=== PATIENT | female | born 1955 | race Caucasian/White ===

== ENCOUNTER 2017-05-04 08:01 | Observation (INO) ==
[2017-05-04 08:25] LABS: Basophils # 0.1 K/mcL (0.0-0.2); Basophils % 0.9 %; Eosinophils # 0.2 K/mcL (0.0-0.6); Eosinophils % 2.7 %; Hematocrit 42.9 % (35.3-44.9); Hemoglobin 14.2 g/dL (11.5-15.4); Immature Granulocytes % 0.1 % (0-4); Lymphocytes # 2.5 K/mcL (0.6-4.6); Lymphocytes % 34.2 %; Mean Corpuscular HGB Conc 33.1 g/dL (31.6-35.5); Mean Corpuscular Hemoglobin 29.8 pg (28.0-33.3); Mean Corpuscular Volume 90.1 fL (83.0-100.0); Mean Platelet Volume 10.6 fL (9.4-12.4); Monocytes # 0.5 K/mcL (0.0-1.3); Monocytes % 6.2 %; Neutrophils # 4.1 K/mcL (1.6-8.9); Platelet Count 184 K/mcL (140-400); Red Blood Count 4.76 M/mcL (3.82-4.97); Red Cell Distribution Width 13.7 % (11.5-14.5); Segmented Neutrophils % 55.9 %
--- NOTE | 2017-05-04 08:26 | Emergency Department Note ---
Disposition Clinical Impression: Near syncope, Chest pain, rule out acute myocardial infarction Disposition: Admitted As Inpatient Condition: Fair Referrals: Terrell Garcia DO [Primary Care Provider] - Forms: ED Satisfaction Letter Time of Disposition: 09:38 Dizziness HPI - General Chief Complaint: ED Dizziness Stated Complaint: chest pressure, near syncope Time Seen by Provider: 05/04/17 08:06 Source: patient, family Limitations: no limitations Nursing Notes Reviewed: Yes Vital Signs Reviewed: Yes - History of Present Illness HPI Narrative: Alert and oriented nontoxic-appearing 61-year-old female presents for evaluation of "dizziness". This had an abrupt onset approximately 45 minutes ago while patient was positioned at work. She also complains of associated diffuse chest pain, shortness of breath, nausea, and "tingling all over". She does complain of a slight nonproductive cough but attributes this to her smoking. She denies any headache or visual disturbances. Her dizziness is made worsened by positional changes. She rates the pressure in her chest and 8 out of 10 on a 10 point scale. She does state a positive cardiac history, having had a single heart stent placed many years ago, however she does not currently take any antiplatelet medications. She denies any swelling of the lower extremities. She denies any hemoptysis. He denies any alleviating factors for her chest pressure. Pt Subjective Complaint: dizziness Onset (ago): minute(s) (45) Timing: sudden onset Description: lightheadedness History of similar episodes: Yes History of trauma: No Severity: moderate Improves with: nothing Worsens with: movement Associated symptoms: Reports: chest pain, diaphoresis, shortness of breath, nausea. Denies: fever, vision changes, vomiting, palpitations - Related Data Home Medications Medication Instructions Recorded Confirmed Aspirin 325 mg PO BID 11/12/14 11/12/14 Allergies Allergy/AdvReac Type Severity Reaction Status Date / Time No Known Allergies Allergy Verified 05/04/17 08:01 All systems ED: reviewed and negative except as stated. Constitutional: Denies: fever, chills, weakness, weight change Eyes: Denies: eye pain, eye discharge, vision change ENT ED: Denies: ear pain, throat pain, dental pain, hearing loss, epistaxis, congestion, dysphagia Cardiovascular: Reports: as per HPI, chest pain. Denies: palpitations, dyspnea on exertion, edema, syncope Respiratory: Reports: as per HPI, dyspnea. Denies: cough, wheezes, hemoptysis, stridor Gastrointestinal: Reports: as per HPI, nausea. Denies: abdominal pain, vomiting , diarrhea, constipation, hematemesis, melena, hematochezia Genitourinary: Denies: dysuria, frequency, hematuria, discharge Musculoskeletal: Denies: back pain, neck pain, arthralgia, myalgia Integumentary: Denies: rash, abrasion, lesions Neurological: Reports: as per HPI, paresthesias, other (dizziness). Denies: headache, weakness, numbness, confusion, abnormal gait, vertigo Psychiatric: Denies: anxiety, depression, suicidal thoughts, homicidal thoughts , auditory hallucinations, visual hallucinations Endocrine: Denies: fatigue Hematological/Lymphatic: Denies: easy bleeding, easy bruising Allergic/Immunologic: Denies: facial swelling, urticaria Past Medical History - Past Medical History Attestation: Yes The following information was validated with the patient. Source: patient, nursing notes reviewed Medical history: Reports: coronary artery disease, hyperlipidemia, hypertension Psychiatric history: Reports: no psych history - Social History Smoking Status: Current every day smoker Smokeless Tobacco Status: No Alcohol use: Reports: none, rarely Drug use: Reports: none Physical Exam - General Limitations: no limitations General appearance: alert, in no apparent distress - Head Head exam: atraumatic, normocephalic, normal inspection - Eye Eye exam: Present: normal appearance, PERRL, EOMI. Absent: nystagmus - Expanded Eye Exam Pupils: Bilateral: regular, round, reactive, size (2) - ENT ENT exam: mucous membranes moist - Neck Neck exam: Present: normal inspection, full ROM, trachea midline. Absent: lymphadenopathy - Chest Chest inspection: Present: normal inspection, symmetric chest wall rise - Respiratory Respiratory exam: Present: normal lung sounds bilaterally. Absent: respiratory distress, wheezes, stridor, accessory muscle use, prolonged expiratory phase - Cardiovascular Cardiovascular exam: Present: regular rate, normal rhythm, normal heart sounds - Abdominal Exam Abdominal exam: Present: soft, Non-Tender, normal bowel sounds - Extremities Exam Extremities exam: Present: normal inspection, full ROM. Absent: tenderness, pedal edema - Neurological Exam Neurological exam: Present: alert, oriented X3, normal gait - Expanded Neurological Exam Patient oriented to: Present: person, place, time Speech: Present: fluid speech Cranial nerves: EOM function (II, III, IV, ): Normal, facial sensation (V): Normal, facial palsy (VII): Normal, spinal accessory function (XI): Normal, tongue deviation (XII): Normal Cerebellar function: finger to nose: Normal, heel to lee: Normal Motor strength - LUE: 5/5 Motor strength - RUE: 5/5 Motor strength - LLE: 5/5 Motor strength - RLE: 5/5 Upper motor neuron exam: grnat neglect: Absent bilaterally, pronator drift: Absent bilaterally, sensory extinction: Absent bilaterally Sensory exam upper extremity: light touch: Normal Sensory exam lower extremity: light touch: Normal Coma Scale Eye Opening: Spontaneous Coma Scale Motor Response: Obeys Commands Coma Scale Verbal Response: Oriented Coma Scale Total: 15 - Psychiatric Psychiatric exam: Present: normal affect, normal mood - Skin Skin exam: Present: warm, dry, intact, normal color Course Course Narrative: 929: I spoke with Dr. Ferraro of the hospitalist service who has accepted patient for admission under her care. I have also discussed this patient's case with Dr. Gallardo. He has had a [id number] evaluation with the patient and agrees with the aforementioned plan. Vital Signs Temperature 97.2 F L 05/04/17 08:02 Pulse Rate 50 05/04/17 08:02 Respiratory Rate 20 05/04/17 08:02 Blood Pressure 161/74 05/04/17 08:02 O2 Sat by Pulse Oximetry 93 05/04/17 08:02 Temperature 97.2 F L 05/04/17 08:02 Pulse Rate 51 05/04/17 09:03 Respiratory Rate 18 05/04/17 09:03 Blood Pressure 151/66 05/04/17 09:03 O2 Sat by Pulse Oximetry 93 05/04/17 09:03 Oxygen Delivery Oxygen Delivery Room Air Dizziness - Medical Records Medical records reviewed: Yes I reviewed the patient's medical records. - Lab Data Lab results reviewed: Yes I reviewed the patient's lab results. Lab results narrative: Laboratory Last Values WBC 7.4 K/mcL (4.3-11.1) 05/04/17 08:17 RBC 4.76 M/mcL (3.82-4.97) 05/04/17 08:17 Hgb 14.2 g/dL (11.5-15.4) 05/04/17 08:17 Hct 42.9 % (35.3-44.9) 05/04/17 08:17 MCV 90.1 fL (83.0-100.0) 05/04/17 08:17 MCH 29.8 pg (28.0-33.3) 05/04/17 08:17 MCHC 33.1 g/dL (31.6-35.5) 05/04/17 08:17 RDW 13.7 % (11.5-14.5) 05/04/17 08:17 Plt Count 184 K/mcL (140-400) 05/04/17 08:17 MPV 10.6 fL (9.4-12.4) 05/04/17 08:17 Immature Gran % 0.1 % (0-4) 05/04/17 08:17 Seg Neutrophils % 55.9 % 05/04/17 08:17 Lymphocytes % 34.2 % 05/04/17 08:17 Monocytes % 6.2 % 05/04/17 08:17 Eosinophils % 2.7 % 05/04/17 08:17 Basophils % 0.9 % 05/04/17 08:17 Neutrophils # 4.1 K/mcL (1.6-8.9) 05/04/17 08:17 Lymphocytes # 2.5 K/mcL (0.6-4.6) 05/04/17 08:17 Monocytes # 0.5 K/mcL (0.0-1.3) 05/04/17 08:17 Eosinophils # 0.2 K/mcL (0.0-0.6) 05/04/17 08:17 Basophils # 0.1 K/mcL (0.0-0.2) 05/04/17 08:17 PT 10.4 Seconds (9.4-12.1) 05/04/17 08:17 INR 1.0 05/04/17 08:17 APTT 24.9 Seconds (26.0-36.0) L 05/04/17 08:17 Sodium 138 mEq/L (136-145) 05/04/17 08:17 Potassium 3.9 mEq/L (3.5-5.1) 05/04/17 08:17 Chloride 107 mEq/L (98-107) 05/04/17 08:17 Carbon Dioxide 26 mEq/L (23-29) 05/04/17 08:17 BUN 21 mg/dL (8-23) 05/04/17 08:17 Creatinine 1.27 mg/dL (0.60-1.20) H 05/04/17 08:17 Est GFR ( Amer) 52 (> 60) L 05/04/17 08:17 Est GFR (Non-Af Amer) 43 (> 60) L 05/04/17 08:17 BUN/Creatinine Ratio 17 (6-26) 05/04/17 08:17 Glucose 157 mg/dL (70-105) H 05/04/17 08:17 Calculated Osmolality 292 (280-300) 05/04/17 08:17 Calcium 8.9 mg/dL (8.6-10.3) 05/04/17 08:17 Troponin I < 0.03 ng/mL (< 0.04) 05/04/17 08:17 Urine Color Yellow (Yellow) 05/04/17 08:58 Urine Clarity Cloudy (Clear) A 05/04/17 08:58 Urine pH 6.0 pH Units (5.0-8.0) 05/04/17 08:58 Ur Specific [place] 1.016 (1.010-1.025) 05/04/17 08:58 Urine Protein Trace mg/dL (Neg-Trace) 05/04/17 08:58 Urine Glucose (UA) Normal mg/dL (Normal) 05/04/17 08:58 Urine Ketones Negative mg/dL (Negative) 05/04/17 08:58 Urine Blood Negative (Negative) 05/04/17 08:58 Urine Nitrite Negative (Negative) 05/04/17 08:58 Urine Bilirubin Negative (Negative) 05/04/17 08:58 Urine Urobilinogen Normal mg/dL (Normal) 05/04/17 08:58 Ur Leukocyte Esterase Small (Negative) H 05/04/17 08:58 Urine Microscopic RBC 0-3 per hpf (0-3) 05/04/17 08:58 Urine Microscopic WBC 3-5 per hpf (0-3) H 05/04/17 08:58 Ur Squamous Epith Cells Many per lpf (None-Few) H 05/04/17 08:58 Urine Bacteria Few per hpf (None-Few) 05/04/17 08:58 Hyaline Casts None Seen per lpf (None-Few) 05/04/17 08:58 Ur Culture Indicated? NO. (NO) 05/04/17 08:58 Result diagrams: 05/04/17 08:17 05/04/17 08:17 Lab Results 05/04/17 05/04/17 05/04/17 Range/Units 08:17 08:17 08:17 WBC 7.4 (4.3-11.1) K/mcL RBC 4.76 (3.82-4.97) M/mcL Hgb 14.2 (11.5-15.4) g/dL Hct 42.9 (35.3-44.9) % MCV 90.1 (83.0-100.0) fL MCH 29.8 (28.0-33.3) pg MCHC 33.1 (31.6-35.5) g/dL RDW 13.7 (11.5-14.5) % Plt Count 184 (140-400) K/mcL MPV 10.6 (9.4-12.4) fL Immature Gran % 0.1 (0-4) % Seg Neutrophils % 55.9 % Lymphocytes % 34.2 % Monocytes % 6.2 % Eosinophils % 2.7 % Basophils % 0.9 % Neutrophils # 4.1 (1.6-8.9) K/mcL Lymphocytes # 2.5 (0.6-4.6) K/mcL Monocytes # 0.5 (0.0-1.3) K/mcL Eosinophils # 0.2 (0.0-0.6) K/mcL Basophils # 0.1 (0.0-0.2) K/mcL PT (9.4-12.1) Seconds INR APTT (26.0-36.0) Seconds Sodium 138 (136-145) mEq/L Potassium 3.9 (3.5-5.1) mEq/L Chloride 107 (98-107) mEq/L Carbon Dioxide 26 (23-29) mEq/L BUN 21 (8-23) mg/dL Creatinine 1.27 H (0.60-1.20) mg/dL Est GFR ( Amer) 52 L (> 60) Est GFR (Non-Af Amer) 43 L (> 60) BUN/Creatinine Ratio 17 (6-26) Glucose 157 H (70-105) mg/dL Calculated Osmolality 292 (280-300) Calcium 8.9 (8.6-10.3) mg/dL Troponin I < 0.03 (< 0.04) ng/mL Urine Color (Yellow) Urine Clarity (Clear) Urine pH (5.0-8.0) pH Units Ur Specific [place] (1.010-1.025) Urine Protein (Neg-Trace) mg/dL Urine Glucose (UA) (Normal) mg/dL Urine Ketones (Negative) mg/dL Urine Blood (Negative) Urine Nitrite (Negative) Urine Bilirubin (Negative) Urine Urobilinogen (Normal) mg/dL Ur Leukocyte Esterase (Negative) Urine Microscopic RBC (0-3) per hpf Urine Microscopic WBC (0-3) per hpf Ur Squamous Epith Cells (None-Few) per lpf Urine Bacteria (None-Few) per hpf Hyaline Casts (None-Few) per lpf Ur Culture Indicated? (NO) 05/04/17 05/04/17 Range/Units 08:17 08:58 WBC (4.3-11.1) K/mcL RBC (3.82-4.97) M/mcL Hgb (11.5-15.4) g/dL Hct (35.3-44.9) % MCV (83.0-100.0) fL MCH (28.0-33.3) pg MCHC (31.6-35.5) g/dL RDW (11.5-14.5) % Plt Count (140-400) K/mcL MPV (9.4-12.4) fL Immature Gran % (0-4) % Seg Neutrophils % % Lymphocytes % % Monocytes % % Eosinophils % % Basophils % % Neutrophils # (1.6-8.9) K/mcL Lymphocytes # (0.6-4.6) K/mcL Monocytes # (0.0-1.3) K/mcL Eosinophils # (0.0-0.6) K/mcL Basophils # (0.0-0.2) K/mcL PT 10.4 (9.4-12.1) Seconds INR 1.0 APTT 24.9 L (26.0-36.0) Seconds Sodium (136-145) mEq/L Potassium (3.5-5.1) mEq/L Chloride (98-107) mEq/L Carbon Dioxide (23-29) mEq/L BUN (8-23) mg/dL Creatinine (0.60-1.20) mg/dL Est GFR ( Amer) (> 60) Est GFR (Non-Af Amer) (> 60) BUN/Creatinine Ratio (6-26) Glucose (70-105) mg/dL Calculated Osmolality (280-300) Calcium (8.6-10.3) mg/dL Troponin I (< 0.04) ng/mL Urine Color Yellow (Yellow) Urine Clarity Cloudy A (Clear) Urine pH 6.0 (5.0-8.0) pH Units Ur Specific [place] 1.016 (1.010-1.025) Urine Protein Trace (Neg-Trace) mg/dL Urine Glucose (UA) Normal (Normal) mg/dL Urine Ketones Negative (Negative) mg/dL Urine Blood Negative (Negative) Urine Nitrite Negative (Negative) Urine Bilirubin Negative (Negative) Urine Urobilinogen Normal (Normal) mg/dL Ur Leukocyte Esterase Small H (Negative) Urine Microscopic RBC 0-3 (0-3) per hpf Urine Microscopic WBC 3-5 H (0-3) per hpf Ur Squamous Epith Cells Many H (None-Few) per lpf Urine Bacteria Few (None-Few) per hpf Hyaline Casts None Seen (None-Few) per lpf Ur Culture Indicated? NO. (NO) - Radiology Data Radiology results reviewed: Yes I reviewed the patient's radiology results. Chest X-Ray 05/04/17 08:07 IMPRESSION: No radiographic evidence of acute cardiopulmonary process. D/ / Gadiel Solano MD / Gadiel Solano MD Interpreting Provider: Gadiel Solano MD Head CT 05/04/17 08:07 IMPRESSION: No acute intracranial abnormality. D/ / Jim Coronado MD / Jim Coronado MD Interpreting Provider: Jim Coronado MD - EKG Data EKG attestation: Yes I reviewed and interpreted this EKG. EKG results narrative: EKG reviewed by Dr. Gallardo as well. EKG shows sinus bradycardia with nonspecific T-wave abnormality at a rate of 81 bpm. KS interval 141, QRS duration 76, QT/QTc interval 441/418. No ectopy noted. No STEMI. T-wave inversions are noted in leads V5 and V6 when compared to a previous EKG dated from 11/03/14. Attestation Statement - Attestation Attestation: For this encounter, I have reviewed the CLOTH MENDER or PA documentation, treatment plan, and medical decision making; and I have had face to face time with this patient. [id number] time provided Patient evaluated in conjunction with the mid-level provider Carlos Sanchez. ECG reviewed by me. Labs reviewed by me. NIH Stroke Scale - Level of Consciousness LOC: Alert - LOC Questions LOC Questions: Answers both correctly - LOC Commands LOC Commands: Performs both correctly - Best Gaze Best Gaze: Normal - Visual Visual: No visual loss - Facial Palsy Facial Palsy: Normal - Motor Arms Motor Arm-Left: No drift for 10 seconds Motor Arm-Right: No drift for 10 seconds - Motor Legs Motor Leg-Left: No drift for 5 seconds Motor Leg-Right: No drift for 5 seconds - Limb Ataxia Limb Ataxia: Normal, No Ataxia - Sensory Sensory: Normal - Best Language Best Language: No aphasia - Dysarthria Dysarthria: Normal - Extinction and Inattention Extinction and Inattention: Normal - NIHSS Total Score NIHSS Total Score: 0
[2017-05-04 08:29] LABS: Prothrombin Time 10.4 Seconds (9.4-12.1)
[2017-05-04 08:32] LABS: Activated Partial Thrombo Time 24.9 Seconds (26.0-36.0)
[2017-05-04] MEDS ORDERED: Aspirin 81 MG TAB.CHEW PO ONE (08:37)
[2017-05-04 08:43] LABS: Calcium 8.9 mg/dL (8.6-10.3); Potassium 3.9 mEq/L (3.5-5.1)
[2017-05-04 09:10] LABS: Bilirubin,Urine Negative (Negative); Blood,Urine Negative (Negative); Clarity,Urine Cloudy (Clear); Color,Urine Yellow (Yellow); Glucose,Urine (UA) Normal (Normal); Ketones,Urine Negative (Negative); Leukocyte Esterase,Urine Small (Negative); Nitrite,Urine Negative (Negative); Protein,Urine Trace mg/dL (Neg-Trace); Specific Gravity,Urine 1.016 (1.010-1.025); Urobilinogen,Urine Normal (Normal)
[2017-05-04 09:12] LABS: Bacteria,Urine Few per hpf (None-Few); Hyaline Casts,Urine None Seen per lpf (None-Few); RBC,Urine 0-3 per hpf (0-3); Squamous Epithelial Cell,Urine Many per lpf (None-Few)
[2017-05-04] MEDS ORDERED: Ondansetron 4 MG/2 ML VIAL IVP ONE (09:21)
[2017-05-04] MEDS ORDERED: Naloxone 0.4 MG/ML INJ IVP PRN (10:17)
[2017-05-04] MEDS ORDERED: Ondansetron 4 MG/2 ML VIAL IVP PRN (10:17)
[2017-05-04] MEDS ORDERED: *HR* Morphine 2 MG/ML SYRINGE IVP PRN (10:17)
[2017-05-04] MEDS ORDERED: Acetaminophen 325 MG TABLET PO PRN (10:17)
[2017-05-04] MEDS ORDERED: *HR* HYDROcodone/Acet 5/325 mg TABLET PO PRN (10:17)
[2017-05-04] MEDS ORDERED: Nitroglycerin 0.4 MG TAB.SUBL SL PRN (10:22)
--- NOTE | 2017-05-04 10:25 | Internal Med History&Physical ---
Date of Encounter: 05/04/17 Time of Encounter: 11:00 Assessment and Plan (1) Unstable angina Current visit: Yes Status: Acute Patient with dizziness accompanied by chest pressure, significant risk factors including a self hx of CAD with stents, not on any antiplatelet therapy, or statins, and tobacco abuse Initial EKG with T wave changes in V5 and V6, new compared to prior EKG of 2014 Initial troponin negative Cycle troponin Obtain ECHO Continue ASA Low dose BB due to patient's chronic hx of bradycardia ACEI, Lipitor at bedtime Check A1C and lipid panel, consult cardiology Keep NPO from MS (2) Hx of coronary artery disease Current visit: Yes Status: Chronic as above (3) HTN (hypertension) Current visit: Yes Status: Chronic continue current meds Qualifiers: Hypertension type: essential hypertension Qualified Code(s): I10 - Essential (primary) hypertension (4) Tobacco abuse Current visit: Yes Status: Chronic cessation encouraged declines NRT (5) Bradycardia Current visit: Yes Status: Chronic chronic, per patient, sometimes up to low to mid 40s. (6) Near syncope Current visit: Yes Status: Acute suspect related to cardiac symptoms Head CT unremarkable Follow ECHO and Carotid USS Keep on telemetry Internal Medicine - H&P: HPI Chief complaint: Dizziness Admitted From: Home Plans for Post Hospital Care: Home History of present illness: Ms. Godinez is a 61 year old female with hx of Tobacco abuse, HTN, HLD, CAD with prior stent several years ago not on any form of antiplatelet She was at work this morning, when she developed dizziness which was sudden, and associated with chest pressure said to have been 10 over 10 in severity, nonradiating. There was associated nausea and one episode of vomiting. The chest pressure lasted until patient go to the ER and it was relieved with aspirin. The patient denies any headaches, no palpitations, no loss of consciousness, she did not fall. She has no shortness of breath, she coughs every day because of smoking and and no changes in phlegm production. She has no fever or chills. She has no abdominal symptoms. She has no leg edema. She has no change in her bowel or urinary habits. Workup in the ER was unremarkable except for a creatinine of 1.7, and trend in her chemistry, this is chronic. Her EKG showed T-wave depressions in V5 and V6 , and his anemia compared to her EKG 2-1/2 years ago. The patient is not aware of any recent EKGs by her PCP. She smokes one pack of cigarettes every day. She has no significant family history of coronary artery disease. Past Med Surg Social Fam HX - Past Medical History Medical history: coronary artery disease, hyperlipidemia, hypertension Psychiatric history: no psych history - Social History Smoking Status: Current every day smoker Smokeless Tobacco Status: No Alcohol use: none, rarely Drug use: none Internal Medicine - H&P: Meds No Known Home Drugs 05/04/17 [History] 3 Allergy/AdvReac Type Severity Reaction Status Date / Time No Known Allergies Allergy Verified 05/04/17 09:51 All Systems PM: A 10-system review of systems was performed and is negative for pertinent findings except as documented above in the HPI. - Constitutional Constitutional: as per HPI - EENT Eyes: as per HPI Ears: as per HPI Nose, mouth and throat: as per HPI - Cardiovascular Cardiovascular ROS IM: as per HPI - Respiratory Respiratory: as per HPI - Gastrointestinal Gastrointestinal: as per HPI - Genitourinary Genitourinary: as per HPI - Musculoskeletal Musculoskeletal ROS IM: as per HPI - Integumentary Integumentary IM: as per HPI - Neurological Neurological ROS: as per HPI - Hematologic/Lymphatic Hematologic/Lymphatic: as per HPI - Constitutional Vitals: Temp Pulse Resp BP Pulse Ox 97.2 F L 51 18 151/66 93 05/04/17 08:02 05/04/17 09:03 05/04/17 09:03 05/04/17 09:03 05/04/17 09:03 General appearance: Present: A&O X 3, pleasant, no acute distress - Head Head exam: Present: atraumatic, normocephalic - Eye Eye exam: Present: PERRL, conjuntiva pink, sclera anicteric Pupils: Present: PERRL - Neck Neck exam general surgery: Present: supple, trachea midline. Absent: lymphadenopathy - Respiratory Respiratory exam: Present: CTAB. Absent: accessory muscle use, rales, rhonchi, wheezes Additional comments: no chest wall tenderness - Cardiovascular Cardiovascular exam: Present: bradycardia (chronic, per patient, sometimes in the upper 40s), RRR, +S1, +S2. Absent: diastolic murmur, gallop, rubs, systolic murmur - GI/Abdominal GI/Abdominal exam: Present: normal bowel sounds, soft, no peritoneal signs. Absent: distended, tenderness - Extremities Exam Extremities exam: Present: warm, radial pulses palpable and symmetrical. Absent : calf tenderness, cyanotic, pedal edema - Neurological Exam Neurological exam: Present: alert, CN II-XII intact, oriented X3, no focal deficits. Absent: pronater drift, facial droop, speech deficit - Skin Skin exam: Present: dry, intact Internal Med - H&P Results - Labs CBC & Chem 7: 05/04/17 08:17 05/04/17 08:17
[2017-05-04] MEDS ORDERED: 0.9 % Sodium Chloride 1,000 ML IVC SCH (12:45)
[2017-05-05 05:55] LABS: Hematocrit 40.6 % (35.3-44.9); Hemoglobin 13.1 g/dL (11.5-15.4); Mean Corpuscular HGB Conc 32.3 g/dL (31.6-35.5); Mean Corpuscular Hemoglobin 29.4 pg (28.0-33.3); Mean Platelet Volume 10.7 fL (9.4-12.4); Platelet Count 160 K/mcL (140-400); Red Blood Count 4.46 M/mcL (3.82-4.97); Red Cell Distribution Width 13.8 % (11.5-14.5)
[2017-05-05 05:59] LABS: Hemoglobin A1C 5.3 %
[2017-05-05 06:15] LABS: Albumin 3.4 g/dL (3.5-5.7); Albumin/Globulin Ratio 1.4 (1.1-2.2); Bilirubin,Total 0.4 mg/dL (0.3-1.0); Calcium 8.5 mg/dL (8.6-10.3); Chol/HDL Ratio 5.4 (0-4.9); Globulin 2.4 g/dL (2.4-3.5); Potassium 4.6 mEq/L (3.5-5.1); Total Protein 5.8 g/dL (6.4-8.9)
[2017-05-05] MEDS: Aspirin Enteric Coated 81 MG Tablet PO SCH (09:16)
--- NOTE | 2017-05-05 10:26 | Internal Med Progress Note ---
<Aodlfo Bartlett - Last Filed: 05/05/17 11:48> Date of Encounter: 05/05/17 Time of Encounter: 10:24 - Assessment and plan (1) Chest pain, rule out acute myocardial infarction Current Visit: Yes Status: Acute Assessment and plan: Patient reports atypical symptoms of chest pressure while at work Cardiology consult for T-wave inversions in V5 and V6, appreciate recommendations Echocardiogram is pending and she will receive pharmacologic stress test tomorrow Initial chest x-ray and troponins were negative She does not take any medications at home, and has been started on aspirin, statin, lisinopril Given bradycardia, she will not be started on beta blockers (2) Near syncope Current Visit: Yes Status: Acute Assessment and plan: Unclear etiology, but may be related to patient's bradycardia We will obtain a carotid Doppler and echocardiogram (3) Hx of coronary artery disease Current Visit: Yes Status: Chronic Assessment and plan: Patient reports having an NE with stents in 2004 We will continue antianginal therapy upon discharge (4) HTN (hypertension) Current Visit: Yes Status: Chronic Assessment and plan: Blood pressure is stable today continue lisinopril Qualifiers: Hypertension type: essential hypertension Qualified Code(s): I10 - Essential (primary) hypertension (5) Bradycardia Current Visit: Yes Status: Chronic Assessment and plan: This is chronic per patient We will avoid beta blockers echocardiogram pending (6) Tobacco abuse Current Visit: Yes Status: Chronic Assessment and plan: Counseled on smoking cessation (7) DVT prophylaxis Current Visit: Yes Status: Acute Assessment and plan: Heparin 5000 units twice a day - Subjective Interval history: Pt seen and examined. She reports chest pressure that has since resolved. She reports dizziness during the initial phase while she was walking at work but believes it is related to her ear. Denies any shortness of breath. - Constitutional Vitals: Temp Pulse Resp BP Pulse Ox 98.1 F 49 16 129/70 94 05/05/17 08:21 05/05/17 08:21 05/05/17 08:21 05/05/17 08:21 05/05/17 09:20 General appearance: Present: A&O X 3, pleasant, no acute distress - Head Head exam: Present: atraumatic, normocephalic - Eye Eye exam: Present: PERRL, conjuntiva pink, sclera anicteric - Neck Neck exam general surgery: Present: supple, trachea midline. Absent: lymphadenopathy - Respiratory Respiratory exam: Present: CTAB. Absent: accessory muscle use, rales, rhonchi, wheezes - Cardiovascular Cardiovascular exam: Present: bradycardia, +S1, +S2. Absent: diastolic murmur, gallop, rubs, systolic murmur - GI/Abdominal GI/Abdominal exam: Present: normal bowel sounds, soft, no peritoneal signs. Absent: distended, tenderness - Extremities Exam Extremities exam: Present: warm, radial pulses palpable and symmetrical. Absent : calf tenderness, cyanotic, pedal edema - Neurological Exam Neurological exam: Present: alert, no focal deficits. Absent: facial droop, speech deficit - Skin Skin exam: Present: dry, intact Internal Medicine: Result - Labs CBC & Chem 7: 05/05/17 05:30 05/05/17 05:30 Labs: Short CBC 05/05/17 Range/Units 05:30 WBC 6.6 (4.3-11.1) K/mcL Hgb 13.1 (11.5-15.4) g/dL Hct 40.6 (35.3-44.9) % Plt Count 160 (140-400) K/mcL BMP 05/05/17 05:30 Sodium 141 Potassium 4.6 Chloride 111 H Carbon Dioxide 27 BUN 17 Creatinine 1.24 H Glucose 89 Calcium 8.5 L Cardiac Enzymes 05/04/17 05/04/17 Range/Units 13:36 20:42 Troponin I < 0.03 < 0.03 (< 0.04) ng/mL Liver Function 05/05/17 Range/Units 05:30 Total Bilirubin 0.4 (0.3-1.0) mg/dL AST 11 L (13-39) Units/L ALT 8 (7-52) Units/L Alkaline Phosphatase 64 (34-104) Units/L Albumin 3.4 L (3.5-5.7) g/dL - ABG Interpretation ABG results: PT/INR, D-dimer PT 10.4 Seconds (9.4-12.1) 05/04/17 08:17 - Impressions Impressions Retroperitoneum Ultrasound 05/04/17 14:00 IMPRESSION: 1. Global right renal atrophy with no obstructive uropathy. This could relate to renal artery stenosis. 2. Normal appearance of the left kidney. 3. Cholelithiasis. D/ / 05/04/2017 16:23:06 Kojo Whitmore MD / olivia Interpreting Provider: Kojo Whitmore MD Consult Discharge Plan - Plan Referrals: Colrivera,Terrell Ashton DO [Primary Care Provider] - (patient will call for an appt... ) <Natanael Ware - Last Filed: 05/05/17 15:40> Date of Encounter: 05/05/17 - Constitutional Vitals: Temp Pulse Resp BP Pulse Ox 97.7 F 52 15 133/60 95 05/05/17 11:45 05/05/17 11:45 05/05/17 11:45 05/05/17 11:45 05/05/17 11:45 Internal Medicine: Result - Labs CBC & Chem 7: 05/05/17 05:30 05/05/17 05:30 Labs: Short CBC 05/05/17 Range/Units 05:30 WBC 6.6 (4.3-11.1) K/mcL Hgb 13.1 (11.5-15.4) g/dL Hct 40.6 (35.3-44.9) % Plt Count 160 (140-400) K/mcL BMP 05/05/17 05:30 Sodium 141 Potassium 4.6 Chloride 111 H Carbon Dioxide 27 BUN 17 Creatinine 1.24 H Glucose 89 Calcium 8.5 L Cardiac Enzymes 05/04/17 Range/Units 20:42 Troponin I < 0.03 (< 0.04) ng/mL Liver Function 05/05/17 Range/Units 05:30 Total Bilirubin 0.4 (0.3-1.0) mg/dL AST 11 L (13-39) Units/L ALT 8 (7-52) Units/L Alkaline Phosphatase 64 (34-104) Units/L Albumin 3.4 L (3.5-5.7) g/dL - ABG Interpretation ABG results: PT/INR, D-dimer PT 10.4 Seconds (9.4-12.1) 05/04/17 08:17 - Impressions Impressions Retroperitoneum Ultrasound 05/04/17 14:00 IMPRESSION: 1. Global right renal atrophy with no obstructive uropathy. This could relate to renal artery stenosis. 2. Normal appearance of the left kidney. 3. Cholelithiasis. D/ / 05/04/2017 16:23:06 Kojo Whitmore MD / olivia Interpreting Provider: Kojo Whitmore MD - Attending Attestation I personally interviewed and examined this patient. I agree with the findings, assessment, and plan of Dr. Bartlett, internal medicine resident. Is a 61-year- old female with history of coronary disease who underwent stenting in 2004. She presents with chest pain, somewhat atypical in nature. Troponins remained negative. She had her beta srinivas held given a heart rate in the 50s. She continues on aspirin, and statin. Patient is currently pain-free. Was dizzy on arrival, which is now resolved. I suspect she may have been mildly dehydrated. She has a history of recent viral like illness last week. Patient otherwise is doing well. Cardiology input is appreciated. Stress test planned for morning.
--- NOTE | 2017-05-05 10:58 | Cardiology Consult Note ---
<Christina Brizuela Harry - Last Filed: 05/05/17 11:00> Date of Encounter: 05/05/17 Time of Encounter: 10:30 Assessment and Plan (1) Chest pain, rule out acute myocardial infarction Current Visit: Yes Status: Acute Reports atypical chest pain symptoms. New T-wave inversions seen in lateral leads. Troponin negative x3. Hx of CAD s/p remote PCI (2004). Recommend nuclear stress test, will plan for 05/06/17. NPO after MN. TTE pending. Will d/c betablocker given bradycardia (avg HR=52). Continue asa, statin. Further recommendations to follow. (2) Dizziness Current Visit: Yes Status: Acute Do not suspect is cardiac in etiology as any head movement provokes symptoms. TTE pending. Defer further mgmt to primary service. (3) Tobacco abuse Current Visit: Yes Status: Chronic Smoking cessation counseling provided. Discussion w patient/family: The assessment and plan as outlined above was discussed with the patient and/or family members who expressed understanding and agreement. All questions were answered. Thank you for involving us in the care of your patient. Please call with any questions. The patient will be discussed and reviewed with Dr. Lazo, changes to be made accordingly. History of Present Illness Consult date: 05/05/17 Requesting physician: Grey Ferraro Consult reason: Chest pain Chief complaint: Chest pain, dizziness History of present illness: Ms. Godinez is a 61 year old female with PMHx significant for tobacco use, HTN, HLD, CKD, and CAD s/p remote PCI (2004) who presented to the ED complaints of dizziness and chest discomfort. Patient reports dizziness that is provoked with any movement such as turning her head. She reports she has told her PCP that she feels she has "ear issues." She also reports intermittent chest pressure with radiation to neck. Upon arrival to ED, troponin negative. Non-specific ST/ T wave changes noted per ECG which provoked cardiology consult. Prior CV testing: TTE 10/20/14: LVEF 60%, no significant valvular dysfunction, normal wall motion Past Med Surg Social Fam HX - Past Medical History Attestation: Yes The following information was validated with the patient. Source: patient Medical history: coronary artery disease, hyperlipidemia, hypertension Psychiatric history: no psych history - Past Surgical History Surgical History: angioplasty/stent - Social History Smoking Status: Current every day smoker Packs per day: 1+ Smokeless Tobacco Status: No Alcohol use: none, rarely Drug use: none Medications and Allergies No Known Home Drugs 05/04/17 [History] 3 Allergy/AdvReac Type Severity Reaction Status Date / Time No Known Allergies Allergy Verified 05/04/17 09:51 All Systems Review: A 10-system review of systems was performed and is negative for pertinent findings except as documented above in the HPI. - Cardiovascular Cardiovascular: as per HPI Physical Examination Vital Signs, Last 4 Hours Temp Pulse Resp BP Pulse Ox 05/05/17 09:20 94 05/05/17 08:21 98.1 F 49 16 129/70 94 General: Conversant, No Apparent Distress HEENT: Atraumatic, Normocephaly, Mucus Membranes Moist Neck: No JVD, Normal carotid pulses Cardiac: Reg Rate and Rhythm, Normal S1 and S2, No Murmur Lungs: Normal Breath Sounds, No Wheeze, Rales, Rhonchi Neuro: Alert and responsive, No focal deficits noted Abdomen: Soft, Non-Tender Skin: No rashes noted on visualized skin Musculoskeletal: No Chest Wall Tenderness Extremities: No Clubbing, No Cyanosis, No Edema, Normal Pulses Results 05/05/17 05:30 05/05/17 05:30 Lab Results 05/04/17 05/04/17 05/05/17 13:36 20:42 05:30 WBC 6.6 Hgb 13.1 Hct 40.6 Plt Count 160 Sodium Potassium Chloride Carbon Dioxide BUN Creatinine Glucose Calcium Total Bilirubin AST ALT Alkaline Phosphatase Troponin I < 0.03 < 0.03 05/05/17 05:30 WBC Hgb Hct Plt Count Sodium 141 Potassium 4.6 Chloride 111 H Carbon Dioxide 27 BUN 17 Creatinine 1.24 H Glucose 89 Calcium 8.5 L Total Bilirubin 0.4 AST 11 L ALT 8 Alkaline Phosphatase 64 Troponin I Active Medications Acetaminophen (Tylenol) 650 mg PO Q6HR PRN PRN Reason: Mild Pain (1-3) Stop: 11/03/17 10:18 Last Admin: 05/04/17 17:33 Dose: 650 mg Hydrocodone Bitart/Acetaminophen ([place] 5-325 Mg) 1 tab PO Q4HR PRN PRN Reason: Moderate Pain (4-6) Stop: 11/03/17 10:18 Aspirin (Aspirin Ec) 81 mg PO DAILY [facility] Stop: 11/04/17 09:01 Last Admin: 05/05/17 09:16 Dose: 81 mg Atorvastatin Calcium (Lipitor) 40 mg PO HS [facility] Stop: 11/03/17 21:01 Last Admin: 05/04/17 21:17 Dose: Not Given Lisinopril (Zestril) 5 mg PO DAILY [facility] PRN Reason: Protocol Stop: 11/03/17 10:31 Last Admin: 05/05/17 09:18 Dose: Not Given Metoprolol Tartrate (Lopressor) 12.5 mg PO BID [facility] Stop: 11/03/17 21:01 Last Admin: 05/05/17 09:18 Dose: Not Given Morphine Sulfate (Morphine Sulfate) 2 mg IVP Q4HR PRN PRN Reason: Severe Pain (7-10) Stop: 11/03/17 10:18 Naloxone HCl (Narcan) 0.4 mg IVP Q2MIN PRN PRN Reason: Opioid Reversal Stop: 11/03/17 10:18 Nitroglycerin (Nitroglycerin) 0.4 mg SL Q5MIN PRN PRN Reason: Chest Pain Stop: 11/03/17 10:23 Ondansetron HCl (Zofran) 4 mg IVP Q8HR PRN PRN Reason: Nausea And Vomiting Stop: 11/03/17 10:18 - Imaging and Cardiology Echo: pending Other Results: 12 hour tele: avg HR=52 SR. No significant event. - EKG Interpretation EKG results cardiology: personally reviewed Consult Discharge Plan - Plan Referrals: Terrell Garcia DO [Primary Care Provider] - (patient will call for an appt... ) <Terrell Lazo - Last Filed: 05/06/17 01:24> Date of Encounter: 05/05/17 Time of Encounter: 18:20 - Attending Attestation I have personally performed a face to face evaluation on this patient. I have reviewed and agree with the care plan. History and Exam by me shows: CC: dizziness Pt presented to [facility] ER with complaint of four day history of recurrent dizziness, feeling the room spin, occurred at rest or with activity any time she turned her head too quickly. Symptoms lasted from 45 seconds to several minutes, provoked by head turning, improved only by holding her head very still. She also complains of chest pain, mid epigastric, radiates from mid sternum into mid back and bilateral neck, just in from of ears. Chest pain usually occurs while at rest, lasts five to fifteen minutes, resolves with rest and holding very still. She reports she has been pain free since admission. She underwent an EKG, which showed non specific ST T wave changes, and cardiology consult was placed to evaluate ischemic substrate. PE: reviewed as above, agree IMP: 1. Atypical chest pain with new Lateral EKg changes, plan on scheduling stress in AM to eval for ischemic substrate. I reviewed echocardiogram, agree with concern fo residual ischemia, will schedule stress imaging in AM. 2. Bradycardia - severe, will hold beta blockade Assessment and Plan Discussion w patient/family: The assessment and plan as outlined above was discussed with the patient and/or family members who expressed understanding and agreement. All questions were answered. Thank you for involving us in the care of your patient. Please call with any questions. History of Present Illness History of present illness: Ms. Godinez is a 61 year old female All Systems Review: A 10-system review of systems was performed and is negative for pertinent findings except as documented above in the HPI. Physical Examination Vital Signs, Last 4 Hours Temp Pulse Resp BP Pulse Ox 05/06/17 00:02 98.1 F 58 16 126/65 96 Results 05/05/17 05:30 05/05/17 05:30 Lab Results 05/05/17 05/05/17 05:30 05:30 WBC 6.6 Hgb 13.1 Hct 40.6 Plt Count 160 Sodium 141 Potassium 4.6 Chloride 111 H Carbon Dioxide 27 BUN 17 Creatinine 1.24 H Glucose 89 Calcium 8.5 L Total Bilirubin 0.4 AST 11 L ALT 8 Alkaline Phosphatase 64
[2017-05-05] MEDS: *HR* Heparin 5,000 UNIT/ML VIAL SQ SCH (17:31)
[2017-05-06 04:44] LABS: Basophils # 0.1 K/mcL (0.0-0.2); Basophils % 1.2 %; Eosinophils # 0.3 K/mcL (0.0-0.6); Eosinophils % 4.3 %; Hematocrit 41.2 % (35.3-44.9); Hemoglobin 13.3 g/dL (11.5-15.4); Immature Granulocytes % 0.2 % (0-4); Lymphocytes # 2.1 K/mcL (0.6-4.6); Lymphocytes % 34.1 %; Mean Corpuscular HGB Conc 32.3 g/dL (31.6-35.5); Mean Corpuscular Hemoglobin 29.3 pg (28.0-33.3); Mean Corpuscular Volume 90.7 fL (83.0-100.0); Mean Platelet Volume 10.8 fL (9.4-12.4); Monocytes # 0.4 K/mcL (0.0-1.3); Monocytes % 6.3 %; Neutrophils # 3.2 K/mcL (1.6-8.9); Platelet Count 174 K/mcL (140-400); Red Blood Count 4.54 M/mcL (3.82-4.97); Red Cell Distribution Width 13.5 % (11.5-14.5); Segmented Neutrophils % 53.9 %
[2017-05-06] MEDS: *HR* Heparin 5,000 UNIT/ML VIAL SQ SCH ×2 (05:53→17:41)
[2017-05-06] MEDS ORDERED: Regadenoson 0.4 MG/5 ML SYRINGE IVP ONE (06:44)
[2017-05-06 08:56] LABS: Calcium 8.7 mg/dL (8.6-10.3); Potassium 4.4 mEq/L (3.5-5.1)
[2017-05-06] MEDS: Aspirin Enteric Coated 81 MG Tablet PO SCH (10:55)
--- NOTE | 2017-05-06 13:30 | Cardiology Progress Note ---
Date of Encounter: 05/06/17 Time of Encounter: 13:28 Assessment and Plan (1) Chest pain, rule out acute myocardial infarction Current Visit: Yes Status: Acute Reported atypical chest pain symptoms on admission. Pt denies recurrent chest pain overnight. New T-wave inversions seen in lateral leads. Troponin negative x3. Hx of CAD s/p remote PCI (2004). 24 hr tele AVG HR 47bpm. Stress test today negative for ischemia or infarct. Echo EF preserved with mild TR and MR. Cardiology signing off. Reconsult PRN. Will coordinate outpt follow-up for bradycardia in 2-3 weeks. (2) Bradycardia Current Visit: Yes Status: Chronic 24 hr tele AVG HR 47. Pt is not on any AV temitope blockers--avoid. Reported dizziness on admission, now resolved. Per pt, HR has been chronically low for years. Will coordinate outpt follow-up in 2-3 weeks to re-evaluate. (3) Tobacco abuse Current Visit: Yes Status: Chronic Smoking cessation counseling provided. Discussion w patient/family: The assessment and plan as outlined above was discussed with the patient and/or family members who expressed understanding and agreement. All questions were answered. Thank you for involving us in the care of your patient. Please call with any questions. I will discuss all the above with Dr. Blunt and make changes as necessary. Subjective Principal diagnosis: Chest pain, dizziness Interval history: Stress test negative for ischemia or infarct. Echo EF 65%, mild concentric LVH, mild LVDD, mild MR and TR. Pt denies recurrent chest pain or dizziness overnight. 24 hr tele AVG HR 47bpm, SR. Objective Vital Signs, Last 4 Hours Temp Pulse Resp BP Pulse Ox 05/06/17 12:03 97.5 F L 50 15 152/79 95 05/06/17 10:50 95 Vital Signs Temp Pulse Resp BP Pulse Ox 05/06/17 12:03 97.5 F L 50 15 152/79 95 05/06/17 10:50 95 05/06/17 08:07 97.6 F 45 16 155/73 96 05/06/17 03:34 98 F 54 16 149/73 94 05/06/17 00:02 98.1 F 58 16 126/65 96 05/05/17 19:29 95 05/05/17 19:10 97.6 F 55 18 139/68 95 05/05/17 16:56 98.2 F 54 16 136/69 94 Intake and Output 05/05/17 05/06/17 05/06/17 23:59 07:59 15:59 Intake Total 120 / 120 810 / 810 Output Total 0 / 0 Balance 120 / 120 810 / 810 Intake: Oral 120 / 120 810 / 810 Output: Urine 0 / 0 Other: Meal Dinner Lunch Percent of Meal Consumed 75% 100% # Voids 1 Weight 74.7 kg Patient Weight 05/06/17 23:59 Weight 74.7 kg General: Conversant, No Apparent Distress HEENT: Atraumatic, Normocephaly, Mucus Membranes Moist Neck: No JVD, Normal carotid pulses Cardiac: Reg Rate and Rhythm, Normal S1 and S2, No Murmur Lungs: Normal Breath Sounds, No Wheeze, Rales, Rhonchi Neuro: Alert and responsive, No focal deficits noted Abdomen: Soft, Non-Tender Skin: No rashes noted on visualized skin Musculoskeletal: No Chest Wall Tenderness Extremities: No Clubbing, No Cyanosis, No Edema, Normal Pulses Results 05/06/17 04:12 05/06/17 04:12 Lab Results 05/06/17 05/06/17 04:12 04:12 WBC 6.0 Hgb 13.3 Hct 41.2 Plt Count 174 Sodium 139 Potassium 4.4 Chloride 108 H Carbon Dioxide 28 BUN 22 Creatinine 1.38 H Glucose 100 Calcium 8.7 Short CBC 05/06/17 Range/Units 04:12 WBC 6.0 (4.3-11.1) K/mcL Hgb 13.3 (11.5-15.4) g/dL Hct 41.2 (35.3-44.9) % Plt Count 174 (140-400) K/mcL Neutrophils # 3.2 (1.6-8.9) K/mcL BMP 05/06/17 Range/Units 04:12 Sodium 139 (136-145) mEq/L Potassium 4.4 (3.5-5.1) mEq/L Chloride 108 H (98-107) mEq/L Carbon Dioxide 28 (23-29) mEq/L BUN 22 (8-23) mg/dL Creatinine 1.38 H (0.60-1.20) mg/dL Glucose 100 (70-105) mg/dL Calcium 8.7 (8.6-10.3) mg/dL Impressions Echocardiogram 05/04/17 10:19 Impressions: Normal sinus rhythm. LVEF 65%. Mild concentric left ventricular hypertrophy. Mild left ventricular diastolic dysfunction. Mild mitral regurgitation. Mild tricuspid regurgitation. Left Ventricular Wall Motion: Rest Echo Findings All wall segments showed normal motion. Findings: Study Quality * Technically adequate exam. ECG Findings * Normal sinus rhythm. Left Ventricle * LVEF 65%. * Mild concentric left ventricular hypertrophy. * Mild left ventricular diastolic dysfunction. Right Ventricle * Normal right ventricular structure and function. Left Atrium * Normal left atrial size. Right Atrium * Normal right atrial size. Aortic Valve * Trileaflet aortic valve. * Trileaflet aortic valve with normal function. Mitral Valve * Normal mitral valve structure. * Mild mitral regurgitation. * Leaflets are not restricted. Tricuspid Valve * Normal tricuspid valve structure. * Mild tricuspid regurgitation. * No pulmonary hypertension. Pulmonic Valve * Normal pulmonic valve structure and function. Aorta * Normally sized aortic root. Pericardium * The pericardium appears normal. Active Medications Acetaminophen (Tylenol) 650 mg PO Q6HR PRN PRN Reason: Mild Pain (1-3) Stop: 11/03/17 10:18 Last Admin: 05/04/17 17:33 Dose: 650 mg Hydrocodone Bitart/Acetaminophen ([place] 5-325 Mg) 1 tab PO Q4HR PRN PRN Reason: Moderate Pain (4-6) Stop: 11/03/17 10:18 Aspirin (Aspirin Ec) 81 mg PO DAILY [facility] Stop: 11/04/17 09:01 Last Admin: 05/06/17 10:55 Dose: 81 mg Atorvastatin Calcium (Lipitor) 40 mg PO HS [facility] Stop: 11/03/17 21:01 Last Admin: 05/05/17 19:33 Dose: Not Given Heparin Sodium (Porcine) (Heparin) 5,000 unit SQ Q12HCO [facility] Stop: 11/04/17 18:01 Last Admin: 05/06/17 05:53 Dose: Not Given Lisinopril (Zestril) 5 mg PO DAILY [facility] PRN Reason: Protocol Stop: 11/03/17 10:31 Last Admin: 05/06/17 10:55 Dose: 5 mg Naloxone HCl (Narcan) 0.4 mg IVP Q2MIN PRN PRN Reason: Opioid Reversal Stop: 11/03/17 10:18 Nitroglycerin (Nitroglycerin) 0.4 mg SL Q5MIN PRN PRN Reason: Chest Pain Stop: 11/03/17 10:23 Ondansetron HCl (Zofran) 4 mg IVP Q8HR PRN PRN Reason: Nausea And Vomiting Stop: 11/03/17 10:18 - Imaging and Cardiology Stress Test: report reviewed Echo: report reviewed Consult Discharge Plan - Plan Referrals: Colopy,Terrell Ashton DO [Primary Care Provider] - (patient will call for an appt... )
--- NOTE | 2017-05-06 21:13 | Internal Med Progress Note ---
Date of Encounter: 05/06/17 Time of Encounter: 10:03 - Assessment and plan (1) Chest pain, rule out acute myocardial infarction Current Visit: Yes Status: Acute Assessment and plan: Patient reports atypical symptoms of chest pressure while at work Cardiology consult for T-wave inversions in V5 and V6, appreciate recommendations Echocardiogram is pending and she will receive pharmacologic stress test tomorrow Initial chest x-ray and troponins were negative She does not take any medications at home, and has been started on aspirin, statin, lisinopril Given bradycardia, she will not be started on beta blockers Cardiology consulted, stress test today. (2) Near syncope Current Visit: Yes Status: Acute Assessment and plan: Unclear etiology, but may be related to patient's bradycardia We will obtain a carotid Doppler and echocardiogram (3) Hx of coronary artery disease Current Visit: Yes Status: Chronic Assessment and plan: Patient reports having an WA with stents in 2004 We will continue antianginal therapy upon discharge (4) HTN (hypertension) Current Visit: Yes Status: Chronic Assessment and plan: Blood pressure is stable today continue lisinopril Qualifiers: Hypertension type: essential hypertension Qualified Code(s): I10 - Essential (primary) hypertension (5) Bradycardia Current Visit: Yes Status: Chronic Assessment and plan: This is chronic per patient We will avoid beta blockers echocardiogram pending (6) Dizziness Current Visit: Yes Status: Acute (7) DVT prophylaxis Current Visit: Yes Status: Acute Assessment and plan: Heparin 5000 units twice a day - Subjective Interval history: Patient denies chest pain. Admits to one episode of headache that has since resolved. - Constitutional Vitals: Temp Pulse Resp BP Pulse Ox 97.8 F 51 16 146/70 95 05/06/17 19:16 05/06/17 19:16 05/06/17 19:16 05/06/17 19:16 05/06/17 19:45 General appearance: Present: A&O X 3, pleasant, no acute distress - Head Head exam: Present: atraumatic, normocephalic - Eye Eye exam: Present: PERRL, conjuntiva pink, sclera anicteric Pupils: Present: PERRL - Neck Neck exam general surgery: Present: supple, trachea midline. Absent: lymphadenopathy - Respiratory Respiratory exam: Present: CTAB. Absent: accessory muscle use, rales, rhonchi, wheezes - Cardiovascular Cardiovascular exam: Present: bradycardia, +S1, +S2. Absent: diastolic murmur, gallop, rubs, systolic murmur - GI/Abdominal GI/Abdominal exam: Present: normal bowel sounds, soft, no peritoneal signs. Absent: distended, tenderness - Extremities Exam Extremities exam: Present: warm, radial pulses palpable and symmetrical. Absent : calf tenderness, cyanotic, pedal edema - Neurological Exam Neurological exam: Present: CN II-XII intact, oriented X3, no focal deficits. Absent: pronater drift, facial droop, speech deficit - Skin Skin exam: Present: dry, intact Internal Medicine: Result - Labs CBC & Chem 7: 05/06/17 04:12 05/06/17 04:12 Labs: Short CBC 05/06/17 Range/Units 04:12 WBC 6.0 (4.3-11.1) K/mcL Hgb 13.3 (11.5-15.4) g/dL Hct 41.2 (35.3-44.9) % Plt Count 174 (140-400) K/mcL Neutrophils # 3.2 (1.6-8.9) K/mcL BMP 05/06/17 04:12 Sodium 139 Potassium 4.4 Chloride 108 H Carbon Dioxide 28 BUN 22 Creatinine 1.38 H Glucose 100 Calcium 8.7 - ABG Interpretation ABG results: PT/INR, D-dimer PT 10.4 Seconds (9.4-12.1) 05/04/17 08:17 - Impressions Impressions Echocardiogram 05/04/17 10:19 Impressions: Normal sinus rhythm. LVEF 65%. Mild concentric left ventricular hypertrophy. Mild left ventricular diastolic dysfunction. Mild mitral regurgitation. Mild tricuspid regurgitation. Left Ventricular Wall Motion: Rest Echo Findings All wall segments showed normal motion. Findings: Study Quality * Technically adequate exam. ECG Findings * Normal sinus rhythm. Left Ventricle * LVEF 65%. * Mild concentric left ventricular hypertrophy. * Mild left ventricular diastolic dysfunction. Right Ventricle * Normal right ventricular structure and function. Left Atrium * Normal left atrial size. Right Atrium * Normal right atrial size. Aortic Valve * Trileaflet aortic valve. * Trileaflet aortic valve with normal function. Mitral Valve * Normal mitral valve structure. * Mild mitral regurgitation. * Leaflets are not restricted. Tricuspid Valve * Normal tricuspid valve structure. * Mild tricuspid regurgitation. * No pulmonary hypertension. Pulmonic Valve * Normal pulmonic valve structure and function. Aorta * Normally sized aortic root. Pericardium * The pericardium appears normal. Consult Discharge Plan - Plan Referrals: Terrell Garcia DO [Primary Care Provider] - (patient will call for an appt... )
[2017-05-07] MEDS: *HR* Heparin 5,000 UNIT/ML VIAL SQ SCH (06:31)
[2017-05-07] MEDS: Aspirin Enteric Coated 81 MG Tablet PO SCH (09:38)
[2017-05-07 10:42] VITALS: BP 135/75
--- NOTE | 2017-05-07 11:16 | Discharge Summary ---
Date of Encounter: 05/07/17 Time of Encounter: 11:15 - Discharge Diagnosis (1) Chest pain, rule out acute myocardial infarction Priority: Primary Status: Acute Comments: Negative workup for ACS. (2) Dizziness Priority: Secondary Status: Acute Comments: Likely vertigo as patient feels room is spinning at rest. Okay to take meclazine or dramamine unit outpatient follow-up. (3) Hx of coronary artery disease Priority: Secondary Status: Chronic (4) HTN (hypertension) Priority: Secondary Status: Chronic Qualifiers: Hypertension type: essential hypertension Qualified Code(s): I10 - Essential (primary) hypertension (5) Bradycardia Priority: Secondary Status: Chronic (6) DVT prophylaxis Priority: Secondary Status: Acute - Discharge Medications Prescriptions: Aspirin Enteric Coated [Aspirin EC] 81 mg PO DAILY #30 tablet. Atorvastatin [Lipitor] 40 mg PO HS #30 tablet Meclizine [Antivert] 12.5 mg PO TID PRN #9 tablet PRN Reason: Dizziness Home Medications: Aspirin Enteric Coated [Aspirin EC] 81 mg PO DAILY #30 tablet. 05/07/17 [Rx] Atorvastatin [Lipitor] 40 mg PO HS #30 tablet 05/07/17 [Rx] Meclizine [Antivert] 12.5 mg PO TID PRN #9 tablet 05/07/17 [Rx] Allergies/Adverse Reactions: 3 Allergy/AdvReac Type Severity Reaction Status Date / Time No Known Allergies Allergy Verified 05/04/17 09:51 Procedures/tests Complete & Pending: Procedures Performed prior 72 hours Category Date Time Status NM inder perf SPECT multi [NM] Routine Exams 05/05/17 11:06 Taken Retroperitoneal Ultrasound - Complete [US Exams 05/04/17 14:00 Completed retroperitoneal comp] [US] Routine EV carotid duplex imaging BI Routine Y 05/06/17 11:49 Completed EV echocardiogram Routine Y 05/04/17 10:19 Completed SP pharm nuclear stress Routine Y 05/06/17 08:00 Completed Date of admission: 05/04/17 10:09 Primary care physician: Terrell Garcia Consults: 05/04/17 11:12 Consult to Nutrition [CONS] Routine Comment: Consulting Provider: NUTRITION Reason for Dietary Consult: MST Score 05/04/17 12:34 Consult to Cardiology [CONS] Routine Comment: Consulting Provider: Cardiology [place] Reason for Consult: Unstable angina Call Completed: Yes Discharging clinician: Merrill Rousseau - Patient Status Disposition: Home, Self-Care Condition: Fair Functional capacity at discharge: independent ambulation Overall status at discharge: patient is back to baseline - Ambulatory Orders Ambulatory Orders: Basic Metabolic Panel [CHEM] Time Frame: 3 Days, Facility: [facility], Location: Lab - Discharge Instructions Follow Up With: Terrell Garcia DO [Primary Care Provider] - (patient will call for an appt... ) - Diet and Activity Activity: increase activity as tolerated Diet: low fat, low cholesterol, low salt diet Hospital course: Ms. Godinez is a 61 year old female with hx of Tobacco abuse, HTN, HLD, CAD with prior stent several years ago not on any form of antiplatelet She was at work this morning, when she developed dizziness which was sudden, and associated with chest pressure said to have been 10 over 10 in severity, nonradiating. There was associated nausea and one episode of vomiting. The chest pressure lasted until patient go to the ER and it was relieved with aspirin. The patient denies any headaches, no palpitations, no loss of consciousness, she did not fall. She has no shortness of breath, she coughs every day because of smoking and and no changes in phlegm production. She has no fever or chills. She has no abdominal symptoms. She has no leg edema. She has no change in her bowel or urinary habits. Workup in the ER was unremarkable except for a creatinine of 1.7, and trend in her chemistry, this is chronic. Her EKG showed T-wave depressions in V5 and V6 , and his anemia compared to her EKG 2-1/2 years ago. The patient is not aware of any recent EKGs by her PCP. She smokes one pack of cigarettes every day. She has no significant family history of coronary artery disease. She was admitted for chest pain to rule out acute coronary syndrome. Cardiology was consulted. Troponin were negative on 3 occasions. She had carotid ultrasound and echocardiogram done which were unremarkable. She had bradycardia which was constant for her. There were no acute abnormalities upon monitoring patient. She had nuclear stress test which was negative for ischemia. She was discharged home in stable condition and plans to follow-up with Cardiology in 2-3 weeks for bradycardia. She was started on lisinopril but will be held briefly on discharge because of slight increase in creatinine. - Workup for vertigo - Hold lisinopril until evaluated by primary care physician for slight increase in creatinine. - Repeat BMP in 3 days. - Time Spent with Patient Total time spent providing and/or coordinating discharge services: - Constitutional Vitals: Temp Pulse Resp BP Pulse Ox 97.4 F L 45 16 135/75 98 05/07/17 10:40 05/07/17 10:40 05/07/17 10:40 05/07/17 10:40 05/07/17 10:40 General appearance: Present: A&O X 3, pleasant, no acute distress - Head Head exam: Present: atraumatic, normocephalic - Eye Eye exam: Present: PERRL, conjuntiva pink, sclera anicteric Pupils: Present: PERRL - Neck Neck exam general surgery: Present: supple, trachea midline. Absent: lymphadenopathy - Respiratory Respiratory exam: Present: CTAB. Absent: accessory muscle use, rales, rhonchi, wheezes - Cardiovascular Cardiovascular exam: Present: RRR, +S1, +S2. Absent: diastolic murmur, gallop, rubs, systolic murmur - GI/Abdominal GI/Abdominal exam: Present: normal bowel sounds, soft, no peritoneal signs. Absent: distended, tenderness - Extremities Exam Extremities exam: Present: warm, radial pulses palpable and symmetrical. Absent : calf tenderness, cyanotic, pedal edema - Neurological Exam Neurological exam: Present: CN II-XII intact, oriented X3, no focal deficits. Absent: pronater drift, facial droop, speech deficit - Skin Skin exam: Present: dry, intact
--- NOTE | 2017-05-07 17:02 | Electrocardiograph Report ---
[place] [id number] Test Date: 2017-05-04 Pat Name: Chantal Godinez Department: 104 Room: 2A Gender: F Data Manager: JESSE : 1955 Requested By: Carlos Sanchez Order Number: [id number] Reading MD: Avtar Balbuena Measurements Intervals [place] Rate: 51 P: 39 [place]: 141 QRS: 7 QRSD: 76 T: 37 QT: 441 QTc: 418 Interpretive Statements SINUS BRADYCARDIA NONSPECIFIC T-WAVE ABNORMALITY Electronically Signed On 05-07-2017 17:00:50 EST by Avtar Balbuena
== END 2017-05-07 13:53 | disposition home or self-care (01) ==
LOC: 2ANU 08:01 → EMEROO 08:01 → 2ANU 10:26
PROVIDERS: ADMIT Internal Medicine; ATTEND Family Medicine